=== PATIENT | male | born 1995 | race Asian ===

== ENCOUNTER 2017-01-02 21:23 | Emergency (ER) | payer OTHER ==
[~2017-01-02] VITALS: Ht 170.2 cm; Wt 56.1 kg
[~2017-01-02 21:23] MED LIST: FAMO20TA9 PO; FLR/1 PO; HYD10 PO; TENO1TAB3 PO
[2017-01-02 21:29] VITALS: TEMP 37.1; Ht 170.2 cm; Wt 56.1 kg
[2017-01-02] MEDS ORDERED: TRAMTAB5 PO (22:57)
[2017-01-02] MEDS ORDERED: MIRT15TA2 PO (22:57)
[2017-01-02] MEDS ORDERED: [UNRECOGNIZED DRUG - OTHER] PO (22:57)
[2017-01-02] MEDS ORDERED: UNKNOWN PAIN MED (22:57)
[2017-01-02] MEDS ORDERED: SODIUM CHLORIDE 0.9% 1000ML 1,000 ML IV STA (23:27)
[2017-01-02] MEDS ORDERED: KETOROLAC TROMETHAMINE 30 MG/ML VIAL IV STA (23:27)
--- NOTE | 2017-01-02 23:45 | EMERGENCY ROOM VISIT NOTE ---
History Report prepared by Jacques: Vane Galloway. Under the Supervision of: Dr. Kateryna Encinas D.O. First contact with patient: 23:05 Chief Complaint: FLU LIKE SX Stated Complaint: FEVER,VOMITING, DIARRHEA, BODYACHE, THROAT PAIN History of Present Illness The patient is a 21 year old male who presents to the Emergency Room with complaints of an intermittent fever that began this morning. He currently rates his discomfort as an 8/10 in severity. The patient states that last evening he went to bed feeling fine other than an emotional outbreak. He states that he started taking an antidepressant two months ago and states that he took it last evening. The patient states that he had no flu-like symptoms when he went to bed last evening. He states that when he woke up he noticed a sore throat, nasal congestion, and a low-grade fever. The patient states that he took 2 500 mg Tylenol tablets and 1 antacid and went back to sleep. He states that when he woke up, he noticed body aches, a headache, increased nasal congestion, increased sore throat, dizziness, and an increased fever. The patient states that he took two more 500 mg Tylenol tablets and drank tea, but states that he vomited and experienced diarrhea. He states that he has a history of liver problems, noting that he has been on steroids all his life. The patient states that he typically increases his steroid dosage when he becomes ill. He states that he additionally has Azithromycin at home for when he becomes sick. The patient states that he started his four day course of Azithromycin, stating that he is instructed to take 500 mg, twice a day for four days. He states that he got his flu shot this year. Source of History: patient Onset: this morning Position: other (global) Symptom Intensity: 8/10 Quality: other (fever) Timing: intermittent Modifying Factors (Relieving): tylenol Associated Symptoms: + diarrhea, + headache, + sorethroat, + vomiting Note: Associated symptoms: nasal congestion, body aches, dizziness Review of Systems See HPI for pertinent positives & negatives. A total of 10 systems reviewed and were otherwise negative. Past Medical & Surgical Medical Problems: (1) Appendicitis (2) Congenital adrenal hyperplasia Hepatitis B Family History Diabetes mellitus Gallbladder disease Heart disease Kidney disease Kidney stones Social History Smoking Status: Never Smoker Marital Status: single Occupation Status: [employer] student Current/Historical Medications Scheduled Fludrocortisone Acetate (Florinef), 0.5 MG PO BID Hydrocortisone (Cortef), Unknown Dose PO BID Mirtazapine Soltab (Remeron Soltab), 15 MG PO HS Tenofovir Disoproxil Fumarate (Viread), 500 MG PO DAILY [Censpram], 10 MG PO DAILY Scheduled PRN Tramadol/Acetaminophen (Ultracet), 1 TAB PO TID PRN for Pain Miscellaneous Medications [Unknown Pain Med] Allergies Coded Allergies: No Known Allergies (Unverified , 01/02/17) Physical Exam Vital Signs Date Time Temp Pulse Resp B/P Pulse Ox O2 Delivery O2 Flow Rate FiO2 01/03/17 01:35 105 18 100/66 96 01/03/17 00:00 98 18 108/59 99 Room Air 01/02/17 23:41 Room Air 01/02/17 21:29 37.1 78 18 94/61 99 Room Air Physical Exam HEENT: Head - normocephalic and atraumatic Pupils are equal, round, and reactive to light. Extraocular eye muscles are intact, and sclera are anicteric. Nose - moist nasal mucosa without discharge. Mouth - moist buccal mucosa. Oropharynx has Tonsillar edema and erythema, no exudate. Neck: Supple; no JVD, nuchal rigidity, cervical lymphadenopathy. Heart: Tachycardic rate and regular rhythm. There is a normal S1 and S2 with no murmurs, clicks, or gallops appreciated. Lungs: Clear to auscultation bilaterally with no wheezes, rales, or rhonchi. Abdomen: Soft, completely nontender, nondistended, with good bowel sounds. There are no palpable pulsatile masses or hepatosplenomegaly. There is no guarding, rigidity, or rebound noted. Extremities: No evidence of cyanosis, clubbing, or edema. There are easily palpable peripheral pulses. Skin: Skin is hot to touch, and dry with good turgor and no rashes. Medical Decision & Procedures ER Provider Diagnostic Interpretation: 1 view chest x-ray: No pulmonary infiltrate or consolidation. Laboratory Results 01/02/17 23:13 Red Blood Count 4.71, Mean Corpuscular Volume 84.1, Mean Corpuscular Hemoglobin 30.6, Mean Corpuscular Hemoglobin Concent 36.4, Mean Platelet Volume 9.5, Neutrophils (%) (Auto) 80.9, Lymphocytes (%) (Auto) 10.5, Monocytes (%) (Auto) 8.1, Eosinophils (%) (Auto) 0.1, Basophils (%) (Auto) 0.2, Neutrophils # (Auto) 9.23, Lymphocytes # (Auto) 1.20, Monocytes # (Auto) 0.92, Eosinophils # (Auto) 0.01, Basophils # (Auto) 0.02 01/02/17 23:13 Test 01/02/17 23:13 01/02/17 23:47 White Blood Count 11.40 K/uL (4.8-10.8) Red Blood Count 4.71 M/uL (4.7-6.1) Hemoglobin 14.4 g/dL (14.0-18.0) Hematocrit 39.6 % (42-52) Mean Corpuscular Volume 84.1 fL (80-100) Mean Corpuscular Hemoglobin 30.6 pg (25-34) Mean Corpuscular Hemoglobin Concent 36.4 g/dl (32-36) Platelet Count 275 K/uL (130-400) Mean Platelet Volume 9.5 fL (7.4-10.4) Neutrophils (%) (Auto) 80.9 % Lymphocytes (%) (Auto) 10.5 % Monocytes (%) (Auto) 8.1 % Eosinophils (%) (Auto) 0.1 % Basophils (%) (Auto) 0.2 % Neutrophils # (Auto) 9.23 K/uL (1.4-6.5) Lymphocytes # (Auto) 1.20 K/uL (1.2-3.4) Monocytes # (Auto) 0.92 K/uL (0.11-0.59) Eosinophils # (Auto) 0.01 K/uL (0-0.5) Basophils # (Auto) 0.02 K/uL (0-0.2) RDW Standard Deviation 36.4 fL (36.4-46.3) RDW Coefficient of Variation 11.8 % (11.5-14.5) Immature Granulocyte % (Auto) 0.2 % Immature Granulocyte # (Auto) 0.02 K/uL (0.00-0.02) Prothrombin Time 11.9 SECONDS (9.0-12.0) Prothromb Time International Ratio 1.1 (0.9-1.1) Activated Partial Thromboplast Time 31.0 SECONDS (21.0-31.0) Partial Thromboplastin Ratio 1.2 Anion Gap 13.0 mmol/L (3-11) Est Creatinine Clear Calc Drug Dose 84.3 ml/min Estimated GFR () 110.6 Estimated GFR (Non- 95.5 BUN/Creatinine Ratio 14.6 (10-20) Calcium Level 9.2 mg/dl (8.5-10.1) Total Bilirubin 1.5 mg/dl (0.2-1) Aspartate Amino Transf (AST/SGOT) 19 U/L (15-37) Alanine Aminotransferase (ALT/SGPT) 30 U/L (12-78) Alkaline Phosphatase 68 U/L (45-117) Total Protein 7.8 gm/dl (6.4-8.2) Albumin 3.7 gm/dl (3.4-5.0) Globulin 4.1 gm/dl (2.5-4.0) Albumin/Globulin Ratio 0.9 (0.9-2) Influenza Type A Antigen Neg for Influ A (NEG) Influenza Type B Antigen Neg for Influ B (NEG) Bedside Lactic Acid Venous 0.74 mmol/L (0.90-1.70) Laboratory results per my review. Medications Administered Medications (Trade) Dose Ordered Sig/Basim Route Start Time Stop Time Status Last Admin Dose Admin Sodium Chloride (Nss 1000ml) 1,000 ml @ 999 mls/hr Q1H1M STAT IV 01/02/17 23:27 01/03/17 00:27 DC 01/02/17 23:27 999 MLS/HR Ketorolac Tromethamine (Toradol Inj) 30 mg NOW STAT IV 01/02/17 23:27 01/02/17 23:28 DC 01/02/17 23:49 30 MG Hydrocortisone Sodium Succinate (Solu-Cortef IV) 100 mg NOW STAT IV 01/03/17 00:22 01/03/17 00:23 DC 01/03/17 00:22 100 MG Procedure The patient was treated with 30 mg IV Toradol Inj, 1000 ml @ 999 mls/hr IV Sodium Chloride, and 100 mg IV Solu-Cortef IV. ED Course Past medical records reviewed. The patient was evaluated in room B8. A complete history and physical exam was performed. A septic protocol was performed. 2327: Ordered Toradol Inj 30 mg IV, Sodium Chloride 1000 ml @ 999 mls/hr IV. Patient had a chest x-ray as described above. 0022: Ordered Solu-Cortef IV 100 mg IV. 0122: I reevaluated the patient and he is feeling much better eating crackers and drinking Gatorade. I discussed all the exam findings with him and I discussed the treatment plan. He verbalized complete understanding and agreement. He is ready to go home. Medical Decision The patient is a 21 year old male who presents to the ED with a fever. Differential diagnosis includes influenza, dehydration, gastroenteritis, sepsis , viral illness, acute adrenal insufficiency. Lab interpretation: Flu is negative, lactic acid is 0.7 total bilirubin 1.5, glucose 92, normal renal function, white blood cell count 11.4 The patient has a history of congenital adrenal hyperplasia and hepatitis B. He presents to the emergency department with a sudden onset of a fever, diffuse body aches and vomiting and diarrhea. The patient had increased to steroid dose at home. He was given IV site Cortef here. He was encouraged to continue doubling his dose of hydrocortisone for the next 2 days. No specific source for his fever could be identified. He was feeling much better after IV fluids, Toradol and hydrocortisone. A sore throat had completely resolved. he had no further vomiting or diarrhea here in the ER. Impression Primary Impression: Febrile illness, acute Scribe Attestation The scribe's documentation has been prepared under my direction and personally reviewed by me in its entirety. I confirm that the note above accurately reflects all work, treatment, procedures, and medical decision making performed by me. Departure Information Dispostion Home / Self-Care Referrals No Doctor, Assigned (PCP) Forms HOME CARE DOCUMENTATION FORM, IMPORTANT VISIT INFORMATION Patient Instructions My [facility] Additional Instructions Rest. take plenty of clear liquids Finish azithromycin Use ibuprofen for fever and body aches. Follow up with [facility] about depression Return to the ER if symptoms worsen. Double hydrocortisone daily for next 2 days
[2017-01-02 23:46] LABS: BASO % 0.2 %; BASO ABS # 0.02 K/uL (0-0.2); COMPLETE YES; EOS % 0.1 %; HEMATOCRIT 39.6 % (42-52); IG% 0.2 %; LYMPH % 10.5 %; MEAN CELL VOLUME 84.1 fL (80-100); MEAN CORPUSCULAR HEMOGLOBIN 30.6 pg (25-34); MEAN CORPUSCULAR HGB CONC 36.4 g/dl (32-36); MEAN PLATELET VOLUME 9.5 fL (7.4-10.4); MONO % 8.1 %; NEUT % 80.9 %; PLATELET COUNT 275 K/uL (130-400); RED BLOOD COUNT 4.71 M/uL (4.7-6.1)
[2017-01-02 23:55] LABS: INR 1.1 (0.9-1.1); PARTIAL THROMBOPLASTIN RATIO 1.2; PROTHROMBIN TIME (PATIENT) 11.9 SECONDS (9.0-12.0)
[2017-01-03 00:06] LABS: BUN/CREATININE RATIO 14.6 (10-20); CALCIUM 9.2 mg/dl (8.5-10.1); CREATININE 1.1 mg/dl (0.60-1.40); POTASSIUM 3.6 mmol/L (3.5-5.1)
[2017-01-03 00:09] LABS: ALB/GLOB RATIO 0.9 (0.9-2)
[2017-01-03] MEDS ORDERED: HYDROCORTISONE SOD SUCCINATE 100 MG/2 ML VIAL IV STA (00:22)
[2017-01-03 01:35] VITALS: BP 100/66; PULSE 105; O2SAT 96
--- NOTE | 2017-01-03 06:42 | DIAGNOSTIC IMAGING REPORT ---
CHEST ONE VIEW PORTABLE CLINICAL HISTORY: Sepsis COMPARISON STUDY: Chest radiograph August 18, 2016. FINDINGS: Lung volumes are normal. Lungs are clear. There is no pneumothorax or pleural effusion. Cardiac size is normal. Mediastinal contours are normal. There is no evidence of pulmonary edema. IMPRESSION: No acute cardiopulmonary findings. Electronically signed by: Fabricio Serrano M.D. 01/03/2017 6:40 AM Dictated Date/Time: 01/03/2017 6:40 AM
== END 2017-01-03 01:35 | disposition home or self-care (01) ==
LOC: C.EDB 21:24
DX: R50.9 Fever, unspecified (principal); Z83.3 Family history of diabetes mellitus; Z79.899 Other long term (current) drug therapy; B19.10 Unspecified viral hepatitis B without hepatic coma